=== PATIENT | male | born 1975 ===

== ENCOUNTER 2020-12-15 01:56 | Emergency (ER) | payer OTHER ==
[2020-12-15 02:29] VITALS: BP 110/72; PULSE 77; RESP 16; TEMP 97.8
--- NOTE | 2020-12-15 02:54 | ED ---
Extremity Problem HPI - General Chief complaint: Extremity Problem,Nontraumatic Stated complaint: Lt Forearm Pain Time Seen by Provider: 12/15/20 02:33 Source: patient, RN notes reviewed, old records reviewed Mode of arrival: ambulatory Limitations: no limitations - History of Present Illness Initial comments: This is a 45-year-old male who woke up with severe sudden left forearm pain and left arm pain and swelling. No triadic injury noted. States he may have been sleeping on arrival but is never hurt this much before. Although upon arrival patient has no complaints symptoms are resolved and he has no significant medical history. Patient states he feels silly for being here and he prefers discharge MD Complaint: extremity pain -: hour(s) Location: left, upper extremity History of Same: No -: Yes myalgia, Yes arthralgia Radiation: proximal Severity scale (1-10): 7 Quality: sharp Consistency: now resolved Improves with: nothing Worsens with: nothing Associated Symptoms: denies other symptoms - Related Data Allergies Allergy/AdvReac Type Severity Reaction Status Date / Time No Known Allergies Allergy Verified 12/15/20 02:25 Review of Systems ROS Statement: Those systems with pertinent positive or pertinent negative responses have been documented in the HPI. ROS Other: All systems not noted in ROS Statement are negative. Past Medical History Past Medical History: No Reported History History of Any Multi-Drug Resistant Organisms: None Reported Past Surgical History: No Surgical Hx Reported Past Psychological History: No Psychological Hx Reported Smoking Status: Current every day smoker Past Alcohol Use History: Occasional Past Drug Use History: None Reported General Exam Limitations: no limitations General appearance: alert, in no apparent distress Head exam: Present: atraumatic, normocephalic, normal inspection Eye exam: Present: normal appearance, PERRL, EOMI. Absent: scleral icterus, conjunctival injection, periorbital swelling ENT exam: Present: normal exam, mucous membranes moist Neck exam: Present: normal inspection. Absent: tenderness, meningismus, lymphadenopathy Respiratory exam: Present: normal lung sounds bilaterally. Absent: respiratory distress, wheezes, rales, rhonchi, stridor Cardiovascular Exam: Present: regular rate, normal rhythm, normal heart sounds. Absent: systolic murmur, diastolic murmur, rubs, gallop, clicks GI/Abdominal exam: Present: soft, normal bowel sounds. Absent: distended, tenderness, guarding, rebound, rigid Extremities exam: Present: normal inspection, full ROM, normal capillary refill. Absent: tenderness, pedal edema, joint swelling, calf tenderness Back exam: Present: normal inspection Neurological exam: Present: alert, oriented X3, CN II-XII intact Psychiatric exam: Present: normal affect, normal mood Skin exam: Present: warm, dry, intact, normal color. Absent: rash Course Vital Signs 12/15/20 02:25 Temperature 97.8 F Pulse Rate 77 Respiratory 16 Rate Blood Pressure 110/72 O2 Sat by Pulse 98 Oximetry - Reevaluation(s) Reevaluation #1: 12/15/20 Record is reviewed Patient symptoms are improved here in the emergency department Patient informed of results and questions answered Patient is in no acute distress Medical Decision Making - Medical Decision Making 45 male with nonspecific left upper extremity pain and swelling. All symptoms are resolved by arrival to the ER. Patient prefers discharged home versus further evaluation. Patient prefers discharged home Disposition Clinical Impression: Left arm pain Disposition: HOME SELF-CARE Condition: Good Instructions (If sedation given, give patient instructions): Arm Pain (ED) Is patient prescribed a controlled substance at d/c from ED?: No Referrals: None,Stated [Primary Care Provider] - 1-2 days
== END 2020-12-15 02:58 | disposition home or self-care (01) ==
LOC: EC 01:56
DX: M79.602 Pain in left arm (principal); F17.200 Nicotine dependence, unspecified, uncomplicated
CPT/HCPCS: 99283